=== PATIENT | male | born 1985 | race Caucasian/White ===

== ENCOUNTER 2025-01-10 01:07 | Emergency (ER) | payer OTHER, SELFPAY ==
[2025-01-10 01:08] VITALS: BP 142/95; PULSE 67; RESP 17; TEMP 36.6; O2SAT 100; BMI 25.0
[2025-01-10 01:13] VITALS: O2SAT 98
--- NOTE | 2025-01-10 01:13 | EKG12_ITS ---
Test Reason : DIZZINESS Blood Pressure : */* mmHG Vent. Rate : 54 BPM Atrial Rate : 54 BPM P-R Int : 170 ms QRS Dur : 86 ms QT Int : 412 ms P-R-T Axes : 71 65 64 degrees QTcB Int : 390 ms Sinus bradycardia Otherwise normal ECG Confirmed by JASMIN FRANZ, BHAVYA ([id number]), newspaper managing editor SHAUNA LEWIS ([id number]) on 01/13/2025 8:36:54 AM Referred By: Confirmed By: BHAVYA CASTELLANOS MD
[2025-01-10 01:29] LABS: Hematocrit 43.4 % (40-54); Hemoglobin 14.4 g/dL (13.0-16.5); Immature Granulocytes Count 0.020 X10^3/uL (0.0-0.0); Mean Corp Hgb Conc 33.2 g/dL (32-36); Mean Corpuscular Volume 92.1 fL (80-94); Mean Platelet Vol. 8.7 fl (6.2-12.0); NRBC Flagged by Analyzer 0 % (0-5); Platelet Count 256 K/mm3 (150-450); RBC Distribution Width CV 13.0 % (11.6-14.6); RBC Distribution Width SD 44.3 fl (35.1-43.9); Red Blood Count 4.71 M/mm3 (4.6-6.2); White Blood Count 8.2 K/mm3 (4.4-11.0)
--- NOTE | 2025-01-10 01:35 | CT_ITS ---
PROCEDURE: BRAIN/HEAD WITHOUT CONTRAST 01/10/2025 REASON FOR EXAM: FALL HEAD INJURY TECHNIQUE: Procedure Code: CTBR Modality: CT Procedure: BRAIN/HEAD WITHOUT CONTRAST Coronal and Sagittal reconstruction series were provided. One or more dose reduction techniques were used (e.g., Automated exposure control, adjustment of the mA and/or kV according to patient size, use of iterative reconstruction technique. RADIATION DOSE SUMMARY: CTDI Vol 44.99 mGy DLP :846.73 mGycm COMPARISON: none FINDINGS: The visualized brain parenchyma shows normal appearance. No focal parenchymal abnormalities are demonstrated. Bilateral cerebral faint sulcal/cortical hyperdensities, possibly artifactual. Salter-white matter differentiation is maintained. Normal CT appearance of the posterior fossa structures. No intracerebral or extra-axial hemorrhage. No midline shifts or deformity. Normal size and configuration of the cerebral ventricles. No definite calvarial fractures. The osseous structures in the skull base are unremarkable. Minimal contour depression of the right zygoma. Scanned paranasal sinuses show focal mucosal thickening of the left maxillary antrum. CT/Brain/Head without Contrast IMPRESSION: No intracerebral or extra-axial hemorrhage. No acute cerebrovascular insult. If clinical symptoms persist, further evaluati on with MRI may be considered as clinically warranted. [facility]
--- NOTE | 2025-01-10 01:40 | RAD_ITS ---
PROCEDURE: CHEST 1 VIEW (PORTABLE) 01/10/2025 REASON FOR EXAM: CHEST PAIN TECHNIQUE: Frontal view of the chest. COMPARISON: None FINDINGS: The lungs are expanded. There is no demonstrated parenchymal abnormality. There is no demonstrated pleural abnormality. Normal heart and pericardium. Normal visualized aortic arch and descending thoracic aorta. No acute osseous abnormalities . There is no demonstrated abnormality of the visualized soft tissue structures of the upper abdomen. RAD/Chest 1 View (Portable) IMPRESSION: No acute cardiopulmonary process Reading [facility]
[2025-01-10 01:41] LABS: D-Dimer Quantitative (DVT/PE) 0.27 FEU/ug/m (0.27-0.49)
[2025-01-10] MEDS: 0.9% Normal Saline (1000mL) 1,000 ML 999 ML IV (01:46)
[2025-01-10 02:08] VITALS: BP 122/76; PULSE 75; RESP 12; O2SAT 97
--- NOTE | 2025-01-10 02:12 | EX.ED.DYSGE1 ---
HPI History of Present Illness Chief Complaint: Dizziness Narrative Narrative: Patient was seen and examined after presenting to ED for dizziness sensation when he ended up falling over hitting his head no loss of consciousness but states that he is having some blurred vision also endorsing like a right arm squeezing sensation as well as a discomfort overlying his chest. PFSH PFSH Medical History no medical history Home Medications Medication Instructions Recorded Last Taken Type NK 01/10/25 Unknown History Allergy/AdvReac Type Severity Reaction Status Date / Time No Known Allergies Allergy Verified 01/10/25 01:13 Social History Smoking Status: Never smoker ROS ROS ED ROS Narrative Pertinent Positives: Chest discomfort blurred vision head injury dizziness Pertinent Negatives: Shortness of breath history of DVT or PE cardiac history nausea vomiting fevers chills diarrhea black or bloody stool use of anticoagulation The remainder of review of systems negative unless otherwise stated in the HPI above. Systems reviewed including constitutional, psychiatric, cardiovascular, respiratory, integument, HENT, gastrointestinal. EXAM Physical Exam Narrative Exam Narrative: Patient is afebrile hemodynamically stable does not appear toxic or in distress he is normocephalic but does have an abrasion to his forehead pupils are equal round reactive to light EOMI. Midface stable. Nontender cervical thoracic and lumbar spine no step-off deformities. Patient has normal heart lung sounds no evidence of any sort of arrhythmia on the monitor. Abdomen is soft nontender nondistended no palpable pulsatile mass he has intact and equal MSPs in all of his extremities no lower extremity edema or calf tenderness Const Vital Signs: 01/10/25 01:08 01/10/25 01:13 01/10/25 02:08 Temperature 97.8 F Temperature Source Oral Pulse Rate 67 75 Respiratory Rate 17 12 Blood Pressure 142/95 H 122/76 H Blood Pressure Mean 110 91 Pulse Ox 100 98 97 Oxygen Delivery Method Room Air Room Air Room Air 01/10/25 03:00 Temperature Temperature Source Pulse Rate 68 Respiratory Rate 18 Blood Pressure 111/75 Blood Pressure Mean 87 Pulse Ox 97 Oxygen Delivery Method Room Air MDM MDM MDM Narrative Medical decision making narrative: Nursing notes, triage notes, available previous documentation, and vital signs were reviewed. Any discrepancies noted were addressed. Differential Diagnoses: Could be an underlying arrhythmia we will evaluate make sure he does not have some sort of intracranial abnormality make sure that this is not a cardiac event such as like ACS lower suspicion for PE or aortic etiology Interventions: Fluids Given: 1 L normal saline Labs Reviewed: No leukocytosis leukopenia or anemia D-dimer is unremarkable. No electrolyte abnormality or renal insufficiency troponin was 7 with a proBNP of less than 36. Delta troponin is pending. Urine no evidence of ketones or evidence of infection. Delta troponin is less than 6 Imaging Reviewed: Personally reviewed and interpreted by me: CT head I do not see any obvious intracranial abnormality such as a brain bleed or large mass. Also my review of the patient's chest x-ray I do not see any obvious pneumonia edema widened mediastinum or pneumothoraces or obvious bony abnormalities such as rib fractures. The official CT head is also without acute pathology EKG: Sinus bradycardia rate of 54. I do not see evidence of ACS. No evidence of prolonged QT syndrome. No evidence of AV Block. No short OK intervals, wide QRS, or Delta waves indicative of WPW. No evidence of dagger-like q waves or LVH indicative of Hypertrophic Cardiomyopathy. No evidence of Brugada Syndrome. EKG interpretation is noted and agreed to in the EMR. The interpretation of this patient's EKG contributed directly to the care and management of this patient. Previous Documentation Reviewed: None available or applicable at this time. ED Course: Patient presenting with symptoms as stated above workup has been initiated were evaluating from an ACS standpoint as unlikely PE given the negative dimer does not seem to be neurologic and fortunately the CT of the head is also unremarkable. Patient's labs are otherwise unremarkable delta troponin is pending but they have a heart score of 0 we will reassess this patient and see how they are feeling. Delta troponin is currently pending however. 0354: Delta troponin is unremarkable patient for me that he is feeling really well and that he would like to go home now so return precautions follow-up recommendations provided patient stable for discharge This note was made utilizing voice recognition software. All attempts were made to correct spelling or other errors prior to note completion. However, due to the fast-paced nature of emergency medicine, some errors may still be present. Lab Data Labs: Laboratory Results - last 24 hr 01/10/25 01/10/25 01/10/25 01:20 02:22 03:22 WBC 8.2 RBC 4.71 Hgb 14.4 Hct 43.4 MCV 92.1 MCH 30.6 MCHC 33.2 RDW Std Deviation 44.3 H RDW Coeff of Yonathan 13.0 Plt Count 256 MPV 8.7 Immature Gran % (Auto) 0.200 Neut % (Auto) 63.0 Lymph % (Auto) 25.0 Frio % (Auto) 10.6 H Eos % (Auto) 0.6 Baso % (Auto) 0.6 Absolute Neuts (auto) 5.2 Absolute Lymphs (auto) 2.05 Nucleated RBC % 0 D-Dimer Quant (PE/DVT) 0.27 Sodium 138 Potassium 4.1 Chloride 105 Carbon Dioxide 21.8 Anion Gap 11 BUN 14 Creatinine 0.71 Estim Creat Clear Calc 132.46 Est GFR (MDRD) Non-Af 118 BUN/Creatinine Ratio 19.1 Glucose 97 Calcium 9.1 Magnesium 2.3 H Troponin T High Sens 7 Troponin T Hi Sens 2 Hr < 6 NT pro BNP II < 36 Urine Color Yellow Urine Clarity Clear Urine pH 6.0 Ur Specific Edon 1.015 Urine Protein 15 H Urine Glucose (UA) Normal Urine Ketones Negative Urine Occult Blood Negative Urine Nitrite Negative Urine Bilirubin Negative Urine Urobilinogen Normal Ur Leukocyte Esterase Negative Urine RBC 0 SEEN Urine WBC 0 SEEN Ur Squamous Epith Cells 0 SEEN Urine Bacteria 0 SEEN Urine Mucus 0 SEEN Radiography Diagnostic Testing: Clinical Impression(s) from Imaging Studies Brain CT 01/10/25 01:35 IMPRESSION: No intracerebral or extra-axial hemorrhage. No acute cerebrovascular insult. If clinical symptoms persist, further evaluation with MRI may be considered as clinically warranted. Reading [facility] Chest X-Ray 01/10/25 01:40 IMPRESSION: No acute cardiopulmonary process Reading Location[facility] Discharge Plan Triage Chief Complaint: Dizziness ED Provider: Colby Mcfadden Dx/Rx/DC Orders Clinical Impression: Dizziness, Blurred vision, Chest pain of uncertain etiology Instructions: ED Chest Pain, Uncertain Cause, ED Dizziness, Uncertain Cause Prescriptions: No Action NK Primary Care Provider: Castro Pierre Referrals: Castro Pierre MD [Primary Care Provider, Family Practice] Activity Restrictions/Additional Instructions: Please follow-up with your primary care doctor if you are having worsening symptoms do not hesitate to come back Print Language: Citizen Of [place] Disposition Disposition: Home, Self Care
[2025-01-10 02:17] LABS: Troponin T High Sensitivity 7 ng/L (<=22)
[2025-01-10 02:19] LABS: Anion Gap 11 (5-15); BUN 14 mg/dL (4-19); BUN/Creat Ratio 19.1 RATIO (10-20); Calcium,Total 9.1 mg/dL (7.6-11.0); Carbon Dioxide 21.8 mmol/L (21.0-32.0); Chloride 105 mmol/L (98-108); Estimated Creatinine Clearance 132.46 ml/min (50-250); Glucose 97 mg/dL (70-99); Magnesium 2.3 mg/dL (1.5-2.2); Potassium 4.1 mmol/L (3.3-5.1)
[2025-01-10 02:25] LABS: Mucous, Urine 0 SEEN /hpf (<or=2+); Red Blood Cells-Urine 0 SEEN /hpf (0-5); Squamous Epithelial Cells - UA 0 SEEN /hpf (0-5)
[2025-01-10 02:39] LABS: Pro- Brain NATRIURETIC PEPTIDE < 36 pg/mL (<=450)
[2025-01-10 02:40] LABS: Color, Urine Yellow (Yellow); Glucose, Dipstick Normal (Normal); Ketone-Dipstick Negative (Negative); Leukocyte Esterase-Dipstick Negative /ul (Negative); Nitrite-Dipstick Negative (Negative); Occult Blood-Urine Negative /ul (Negative); Protein-Dipstick 15 mg/dl (Negative); Specific Gravity, Urine 1.015 (1.002-1.030); Urine Bilirubin Dipstick Negative (Negative)
[2025-01-10 03:00] VITALS: BP 111/75; PULSE 68; RESP 18; O2SAT 97
[2025-01-10 03:45] LABS: Troponin T High Sens 2 HR < 6 ng/L (<=22)
[2025-01-10 03:59] VITALS: BP 115/75; PULSE 74; RESP 18; TEMP 36.6; O2SAT 99
== END 2025-01-10 04:01 | disposition home or self-care (01) ==
PROVIDERS: Emergency Provider Specialist/Technologist Athletic Trainer; PCP Family Medicine; Visit Provider Specialist/Technologist Athletic Trainer
DX: R42 Dizziness and giddiness (principal); R07.9 Chest pain, unspecified; H53.8 Other visual disturbances; S00.81XA Abrasion of other part of head, initial encounter; W01.10XA Fall on same level from slipping, tripping and stumbling with subsequent striking against unspecified object, initial encounter
CPT/HCPCS: 70450; 71045; 80048; 81001; 83735; 83880; 84484; 85025; 85379; 93005; 96360; 99284; A4216